=== PATIENT | male | born 2000 | race Two or more races ===

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

== ENCOUNTER 2022-01-01 11:18 | Emergency (ER) | payer OTHER ==
[~2022-01-01] VITALS: Ht 170.2 cm; Wt 79.4 kg
[2022-01-01 13:27] VITALS: BP 140/72
== END 2022-01-01 14:56 | disposition home or self-care (01) ==
LOC: ER 11:18
DX: S01.111D Laceration without foreign body of right eyelid and periocular area, subsequent encounter (principal); W51.XXXD Accidental striking against or bumped into by another person, subsequent encounter